=== PATIENT | male | born 1975 | race Two or more races ===

== ENCOUNTER 2021-04-24 19:29 | Emergency (ER) | payer MEDICARE, OTHER ==
[~2021-04-24] VITALS: Ht 172.7 cm; Wt 88.5 kg
--- NOTE | 2021-04-24 19:50 | NUR ---
xray at bedside
[2021-04-24] MEDS ORDERED: IBUPROFEN 600 MG TABLET PO ONE (20:00)
[2021-04-24 20:13] LABS: BASOPHILS # (AUTO) 0.1 K/uL (0.0-0.2); BASOPHILS % (AUTO) 0.6 % (0.0-2.0); HEMATOCRIT 43 % (39-51); HEMOGLOBIN 15.2 g/dL (13.5-17.5); LYMPHOCYTES # (AUTO) 1.5 K/uL (0.8-4.8); LYMPHOCYTES % (AUTO) 18.1 % (20.0-44.0); MEAN CORPUSCULAR HGB CONC 35 g/dl (31.0-36.0); MEAN CORPUSCULAR VOLUME 96 fL (80-96); MONOCYTES # (AUTO) 0.6 K/uL (0.1-1.30); MONOCYTES % (AUTO) 6.9 % (2.0-12.0); NEUTROPHILS # (AUTO) 6.1 K/uL (1.8-8.9); NEUTROPHILS % (AUTO) 73.4 % (43.0-81.0); PLATELET COUNT (AUTO) 251 K/uL (150-450); RED BLOOD CELL COUNT(AUTO) 4.49 MIL/uL (4.5-6.0); WHITE BLOOD COUNT (AUTO) 8.3 K/uL (4.3-11.0)
--- NOTE | 2021-04-24 20:13 | NUR ---
BIBRA FROM THE STREET TO ER BED 12. AAOX4. NOT IN RESP DISTRESS, BREATHING EVEN AND UNLABORED. AMBULATORY. BROUGHT IN FOR MID STERNAL CP X 1800. PT RATES PAIN 7/10 SHARP, NON RADIATING, AGGREVATED BY BREATHING AND ALLEVIATED BY RESTING. PT WAS GIVEN ASA 324 BY EMS SCALDER. PT ON MONITOR. EKG DONE AT BEDSIDE. MD WAS AT THE BEDSIDE FOR EVAL. ORDERS RECEIVED, NOTED AND CARRIED OUT. IV LINE ALREADY PRESENT ON RFA 20G. BLOOD DRAWN AND GIVEN TO PHLEB. WILLL CONTINUE TO MONITOR.
[2021-04-24 20:21] LABS: CALCIUM, SERUM 8.8 mg/dL (8.5-10.1); CARBON DIOXIDE 28 mmol/L (21-32); CHLORIDE 103 mmol/L (98-107); CREATININE 0.9 mg/dL (0.6-1.3); GLUCOSE 109 mg/dL (74-106); POTASSIUM 3.7 mmol/L (3.5-5.1); SODIUM SERUM 141 mmol/L (136-145); UREA NITROGEN, BLOOD 14 mg/dL (7-18)
[2021-04-24 20:27] LABS: ALANINE AMINOTRANSFERASE 35 U/L (12-78); ALKALINE PHOSPHATASE 78 U/L (46-116); ASPARTATE AMINOTRANSFERASE 52 U/L (15-37); BILIRUBIN,DIRECT 0.1 mg/dL (0.0-0.2); BILIRUBIN,TOTAL 0.5 mg/dL (0.2-1.0); TOTAL PROTEIN, SERUM 7.1 g/dL (6.4-8.2)
[2021-04-24] MEDS ORDERED: IBUP-1955 PO (23:43)
--- NOTE | 2021-04-25 00:12 | NUR ---
Patient discharged to home in stable condition. Written and verbal after care instructions given. Patient verbalizes understanding of instruction.IV removed. Catheter intact and site benign. Pressure and 4x4 applied to site. No bleeding noted. Pt ambulatory with a steady gait
[2021-04-25 00:14] VITALS: BP 114/57
[2021-04-25] MEDS ORDERED: LISI20TA30 PO (10:45)
== END 2021-04-25 00:14 | disposition home or self-care (01) ==
LOC: ER 19:31
DX: R07.89 Other chest pain (principal); F17.210 Nicotine dependence, cigarettes, uncomplicated; I10 Essential (primary) hypertension; Z59.0 Homelessness
CPT/HCPCS: 36415; 71045-TC; 80048-TC; 80076-TC; 83690-TC; 84484-TC; 85025-TC

== ENCOUNTER 2021-04-25 09:37 | Emergency (ER) | payer OTHER ==
[~2021-04-25] VITALS: Ht 172.7 cm; Wt 94.3 kg
[~2021-04-25 09:37] MED LIST: IBUP-1955 PO
--- NOTE | 2021-04-25 10:14 | NUR ---
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 THE PATIENT IS ALERT AND ORIENTED X4. DENIES PAIN. ABDOMEN SOFT AND NON-DISTENDED. IN ROOM AND DENIES SOB. RESPIRATION REGULAR AND UNLABORED. ATTACHED TO THE MONITOR. WARM BLANKET PROVIDED FOR COMFORT. WILL CONTINUE TO MONITOR THE PATIENT.
[2021-04-25 10:31] LABS: BASOPHILS % (AUTO) 0.3 % (0.0-2.0); EOSINOPHILS % (AUTO) 0.4 % (0.0-6.0); HEMATOCRIT 44 % (39-51); HEMOGLOBIN 15.6 g/dL (13.5-17.5); LYMPHOCYTES # (AUTO) 1.1 K/uL (0.8-4.8); LYMPHOCYTES % (AUTO) 12.8 % (20.0-44.0); MEAN CORPUSCULAR HGB CONC 35 g/dl (31.0-36.0); MEAN CORPUSCULAR VOLUME 96 fL (80-96); MONOCYTES # (AUTO) 0.5 K/uL (0.1-1.30); MONOCYTES % (AUTO) 5.9 % (2.0-12.0); NEUTROPHILS % (AUTO) 80.6 % (43.0-81.0); PLATELET COUNT (AUTO) 241 K/uL (150-450); RED BLOOD CELL COUNT(AUTO) 4.62 MIL/uL (4.5-6.0); WHITE BLOOD COUNT (AUTO) 8.7 K/uL (4.3-11.0)
[2021-04-25] MEDS ORDERED: ACTIVATED CHARCOAL 25 GM/120 ML TUBE ONE (10:38)
[2021-04-25 10:41] LABS: CALCIUM, SERUM 8.7 mg/dL (8.5-10.1); CARBON DIOXIDE 26 mmol/L (21-32); CHLORIDE 103 mmol/L (98-107); GLUCOSE 96 mg/dL (74-106); POTASSIUM 3.9 mmol/L (3.5-5.1); SODIUM SERUM 141 mmol/L (136-145); UREA NITROGEN, BLOOD 19 mg/dL (7-18)
[2021-04-25] MEDS ORDERED: LISI20TA30 PO (10:45)
[2021-04-25 10:46] LABS: ALANINE AMINOTRANSFERASE 34 U/L (12-78); ALCOHOL, BLOOD < 3 mg/dL (0-0); ALKALINE PHOSPHATASE 75 U/L (46-116); ASPARTATE AMINOTRANSFERASE 42 U/L (15-37); BILIRUBIN,DIRECT 0.2 mg/dL (0.0-0.2); BILIRUBIN,TOTAL 0.7 mg/dL (0.2-1.0); TOTAL PROTEIN, SERUM 7.2 g/dL (6.4-8.2)
[2021-04-25] MEDS: ACTIVATED CHARCOAL 25 GM/120 ML TUBE PO ONE (10:50)
[2021-04-25 11:09] LABS: ACETAMINOPHEN 0 ug/ml (10-30)
--- NOTE | 2021-04-25 12:07 | NUR ---
URINE COLLECTED AND SENT TO THE LAB
[2021-04-25 12:20] LABS: BILIRUBIN,URINE SMALL (NEGATIVE); COLOR,URINE YELLOW (YELLOW); LEUKOCYTE ESTERASE ,URINE Negative (NEGATIVE); NITRITE, URINE Negative (NEGATIVE); PROTEIN,URINE Trace mg/dl (NEGATIVE); UGLUCOSE Negative (NEGATIVE); UROBILINOGEN,URINE 0.2 EU/dL (0.2)
[2021-04-25 12:34] LABS: BACTERIA,URINE Rare /HPF (None Seen); RBC,URINE 0-2 /HPF (0-2); SQUAMOUS EPITHELIAL CELL,UR Rare /HPF (None Seen); WBC,URINE 0-2 /HPF (0-3)
[2021-04-25] MEDS: IV NS 0.9% 1,000 ML BAG IV ONE (13:01)
--- NOTE | 2021-04-25 14:52 | NUR ---
RECEIVED A CALL FROM [facility] TO REPEAT BMP AND ASPIRIN LEVEL. DR GOMEZ MADE AWARE.
[2021-04-25 16:37] LABS: CALCIUM, SERUM 8.3 mg/dL (8.5-10.1); POTASSIUM 3.8 mmol/L (3.5-5.1)
--- NOTE | 2021-04-25 17:28 | NUR ---
THE PATIENT AWAKE. ALERT AND ORIENTED X4. DENIES PAIN. IN ROOM AIR AND DENIES SOB. RESPIRATION REGULAR AND UNLABORED. WILL CONTINUE TO MONITOR THE PATIENT.
--- NOTE | 2021-04-25 20:00 | NUR ---
PATIENT IN BED SLEEPING EASY TO AROUSE, VSS, PATIENT CONNECTED TO MONITORS.
--- NOTE | 2021-04-25 22:13 | NUR ---
[facility] ON PHONE FOR PT STATUS UPDATED AND V/S.
--- NOTE | 2021-04-25 22:49 | NUR ---
CALLED [facility]. INFORMED THAT THEIR CASE WAS CLOSED AND PT IS CLEARED TO BE DISCHARGED.
--- NOTE | 2021-04-26 01:50 | NUR ---
bank consultant at bedside
--- NOTE | 2021-04-26 04:28 | NUR ---
faxed 's note to [facility]
--- NOTE | 2021-04-26 08:52 | NUR ---
THE PATIENT IS SLEEPING IN BED. RESPONSIVE TO VERBAL STIMULI. IN ROOM AIR AND DENIES SOB. RESPIRATION REGULAR AND UNLABORED. WILL CONTINUE TO MONITOR THE PATIENT.
--- NOTE | 2021-04-26 09:05 | NUR ---
THE PATIENT HAVING BREAKFAST. T[employer]ERATED PROVIDED MEAL WELL. PO FLUIDS ENCOURAGED.
--- NOTE | 2021-04-26 11:06 | NUR ---
Spoke to [facility] [phone] "HCP/HMO- NOT contracted with HMO. Cant take pt" Contacted Insurance on file HCP/HMO - (policy [id number]) spoke to Kailey will call back Presented to [facility] x [phone] (defer to )- SW x [phone] -will call back. Contacted [facility] [phone] and Fax ALL relevant info to [phone], [phone]
--- NOTE | 2021-04-26 11:44 | NUR ---
JHONATHAN received call from Augustina regarding problem with pt.'s insurance. JHONATHAN called [employer] dept EXT #[phone] [facility] and left voicemail requesting assistance with pt.'s insurance. JHONATHAN will follow up with them and assist with placement.
--- NOTE | 2021-04-26 11:50 | NUR ---
JHONATHAN received call back from Sharmin at [facility] stating she will help pt. with insurance benefits. JHONATHAN notified Nurse,
--- NOTE | 2021-04-26 12:02 | NUR ---
RECEIVED CALL FROM ANA (GIOVANA FROM [facility]) STATING THAT SINCE THE PATIENT IS ON HOLD, JANAY BOSTON SHOULD FOLLOW UP WITH [facility] ([facility] PSYCH DEPT) FOR AUTH. [facility] TEL [phone]
--- NOTE | 2021-04-26 12:06 | NUR ---
THE PATIENT HAVING LUNCH. TOLERATES PROVIDED MEAL WELL. PO FLUIDS ENCOURAGED.
--- NOTE | 2021-04-26 12:07 | NUR ---
RECEIVED CALL FROM ANA STATING THAT INSTEAD OF [facility] WE SHOULD FOLLOW UP WITH [facility] [phone]
--- NOTE | 2021-04-26 12:17 | NUR ---
Left messages to numbers provided to assist with Psych Placement/[phone]
--- NOTE | 2021-04-26 12:35 | NUR ---
CALLED [facility] AND SPOKE WITH REP MASCORRO WHO ASKED FOR THE FACESHEET TO BE FAXED TO [phone] FACESHEET IS FAXED
--- NOTE | 2021-04-26 13:38 | NUR ---
PER LUDWIN FROM [facility] THE PATIENT IS NOT UNDER [place] AND NEEDS TO BE CALLED TO [facility] TEL [phone]
--- NOTE | 2021-04-26 13:47 | NUR ---
PER REP FROM [facility] TEL [phone], THE PATIENT`S AUTH FOR PSYCH SHOULD BE FOLLOW UP WITH [facility] TEL [phone]
--- NOTE | 2021-04-26 14:08 | NUR ---
PER SHRUTHI CASTILLO THE PATIENT IS UNDER N (TEL [phone]) AND [facility] SHOULD FOLLOW UP WITH Tomy. [facility] CASE MANAGEMENT MADE AWARE. Addendum: 04/26/21 at 1411 by MYNOR SOFIE LÓPEZ FOLLOWING UP
--- NOTE | 2021-04-26 14:16 | NUR ---
RECIEVED CALL FROM ROSA ISELA WITH [facility], WILL BEGIN TRANSFER REQUEST
--- NOTE | 2021-04-26 14:28 | NUR ---
SW notified NurseKarly that the following facilities are contracter with pt.'s insurance. Karly will fax clinicals to following psych [facility]: [facility] tel:[phone] ATTN:YONATHAN Barnes [place] fax:[phone] tel:[phone] ATTN: [facility] FAX: [phone] TEL:[phone] ATTN: Sophy
--- NOTE | 2021-04-26 14:51 | NUR ---
FAXED CLINICALS TO [facility], [facility], AND [facility] FOR PSYCH ADMISSION
--- NOTE | 2021-04-26 15:03 | NUR ---
SPOKE TO ROSA ISELA OF [facility]TAKE [facility] . PT ACCEPTED AT [facility], ADDRESS: [address] [place] [address]. ACCEPTING MD: DR YUAN. ROOM 253A, UN[address]. GIVE REPORT TO NURSE AT . CALL IN HALF HR
[2021-04-26 16:03] VITALS: BP 106/60
--- NOTE | 2021-04-26 16:03 | NUR ---
CLINICALS PROVIDED TO JAMES FROM [facility] [phone], WILL CALL BACK FOR ACCEPTANCE INFO
--- NOTE | 2021-04-26 16:05 | NUR ---
covid swab done and sent to the lab
--- NOTE | 2021-04-26 16:31 | NUR ---
CALLED [facility] FOR BLS, ETA [phone] HOURS
--- NOTE | 2021-04-26 16:57 | NUR ---
REPORT GIVEN TO NURSE GARCIAS FROM [facility]
--- NOTE | 2021-04-26 19:15 | NUR ---
THE PATIENT IS TRANSFERED TO [facility] VIA [facility]ED TRANSPO
== END 2021-04-26 19:17 ==
LOC: ER 09:39
DX: I95.2 Hypotension due to drugs (principal); T46.4X2A Poisoning by angiotensin-converting-enzyme inhibitors, intentional self-harm, initial encounter; Y92.89 Other specified places as the place of occurrence of the external cause; Z59.0 Homelessness; I10 Essential (primary) hypertension; Z20.822 Contact with and (suspected) exposure to COVID-19
CPT/HCPCS: 36415; 80048 ×2; 80076; 80143; 80307; 80320; 81001; 85025; 87426; 93005; 96360; 99285; C9803; J7030; G0480